=== PATIENT | male | born 1950 | race Caucasian/White ===

== ENCOUNTER 2019-05-27 08:15 | Outpatient (RCR) | payer OTHER, SELFPAY ==
[2019-05-01 10:21] VITALS: RESP 16; TEMP 37.1; BMI 45.9
--- NOTE | 2019-05-01 12:23 | HP.PCM_ITS ---
(1) Cellulitis of left leg without foot Status: Acute Current Visit: Yes Code(s): L03.116 - Cellulitis of left lower limb (2) Lower extremity edema Status: Acute Current Visit: Yes Code(s): R60.0 - Localized edema (3) Diabetes type 2, uncontrolled Status: Acute Current Visit: Yes Code(s): E11.65 - Type 2 diabetes mellitus with hyperglycemia (4) CVA (cerebrovascular accident due to intracerebral hemorrhage) Status: Acute Current Visit: Yes Qualifiers: Intracerebral hemorrhage etiology: traumatic Laterality: unspecified laterality Code(s): I61.9 - Nontraumatic intracerebral hemorrhage, unspecified (5) Peripheral vascular disease due to secondary diabetes mellitus Status: Acute Current Visit: Yes Code(s): E13.51 - Other specified diabetes mellitus with diabetic peripheral angiopathy without gangrene History of Present Illness Date of Service: 05/01/19 Chief Complaint: Follow-up left lower leg cellulitis and blisters History of Wound: 78-year-old white male that developed cellulitis in his left lower leg and was admitted to the hospital for what seems to be Pseudomonas infection of the left lower leg has been on IV antibiotics for 3 to 5 days. Was recently sent home and is primary care doctor put him on another set of antibiotics unknown but she thinks it was Levaquin. Patient was sent to us from primary care in [place]. Past Medical History Past Medical History: right he did have that done hypertension strokes diabetes atrial fib long-term blood thinners use Home Medications: Ambulatory Orders Medication Instructions Recorded Albuterol IH (ProAir) [Proair Hfa 2 puff INHALATION Q4H PRN PRN 05/01/19 (SP)Vent Pts] Apixaban [Eliquis] 5 mg PO BID 05/01/19 Clonidine HCl [Catapres] 0.1 mg PO TID 05/01/19 Diltiazem CD [Cardizem CD] 180 mg PO DAILY 05/01/19 Ezetimibe [Zetia] 10 mg PO DAILY 05/01/19 Furosemide 80 mg PO DAILY 05/01/19 Losartan Potassium 100 mg PO DAILY 05/01/19 Lovastatin 20 mg PO DAILY 05/01/19 Metformin HCl [Metformin HCl ER] 500 mg PO BID 05/01/19 Metoprolol Succinate 100 mg PO DAILY 05/01/19 Multivitamin with Minerals 1 ea PO DAILY 05/01/19 [Multiple Vitamin] Omeprazole 40 mg PO BID 05/01/19 Potassium Chloride [K-Dur] 40 meq PO BID 05/01/19 Pramipexole Di-HCl [Pramipexole 0.125 mg PO DAILY 05/01/19 Dihydrochloride] Lives: Spouse/ Significant Other Smoking Status: Former smoker Review of Systems Constitutional: Denies: Chills, Fever Eyes: Denies: Blurred vision, Drainage, Pain HEENT: Denies: Difficulty Hearing, Difficulty Swallowing, Sore Throat, Visual C hanges Cardiovascular: Denies: Chest Pain, Palpitations, Syncope Respiratory: Denies: Cough, Shortness of Breath Gastrointestinal: Denies: Abdominal Pain, Nausea, Vomiting Genitourinary: Denies: Dysuria, Frequency Musculoskeletal: Denies: Joint Pain, Muscle pain Skin: Reports: Rash, - - Blistering redness swelling lower legs. 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 Oral: Moist Mucosa Neck: Supple, No JVD Lungs: Clear to auscultation, Normal air movement Cardiovascular: Regular rate, Regular Rhythm Abdomen: Bowel Sounds Present, Soft, Non Tender, No Hepato-splenomegaly Extremities: No clubbing, No edema, Edema Skin: Rash Present, - - Warm to touch left leg Wound Measurements and Assessment WC - Nurse 1 - General Ulcer Measurement Start: 05/01/19 10:20 Freq: Status: Active Protocol: Activity Type Activity Date Activity User E-Sign Co-Sign Detail Recorded Client Recorded Date Recorded By Document 05/01/19 10:21 [facility] [id number] 05/01/19 10:44 [facility] 05/01/19 10:21 Wound Center Nurse 1 [Ulcer Assessment] 1. LLE medial -Combined with other wound No -Current Size (cm) - Length 5.4 -Current Size (cm) - Width 5.7 -Current Size (cm) - Depth 0.1 -Total Square Cm 30.78 -Photo Taken Yes -Tunneling No -Undermining/Tunneling No -Circular Undermining No -Exudate Amt Small -Exudate Type Serosanguineous -Wound Margin Flat & Intact -Granulation Amt Medium (34-66%) -Granulation Quality [place] -Slough/Fibrin Yes -Necrosis Amt Medium (34-66%) -Necrotic Tissue Type Adherent Slough -Structure Exposed N/A -Texture (Rosalinda-wound Skin Appearance) Assessed -Moisture (Rosalinda-wound Skin Appearance Weeping ) -Color (Rosalinda-wound Skin Appearance) Hemosiderin Staining -Ulcer Cleansing Wound Cleanser -Foul Odor after Cleansing No -Anesthetic Used 5% Lidocaine Gel [Edema Assessment] -Lower Limb Edema Present Yes -Right Calf (cm) 47.5 -Right Ankle (cm) 28.7 -Left Calf (cm) 52 -Left Ankle (cm) 30.9 WC - Nurse 2 - General Ulcer CM Notes Start: 05/01/19 10:20 Freq: Status: Active Protocol: Activity Type Activity Date Activity User E-Sign Co-Sign Detail Recorded Client Recorded Date Recorded By Document 05/01/19 11:11 MW [id number] 05/01/19 11:19 MW 05/01/19 11:11 Wound Center Nurse 2 [Procedure/Treatment] 1. LLE medial -Time 11:12 -Correct Patient Yes -Correct Side, Site, Position Yes -Correct Procedure Yes -Procedure Performed Yes -Type of Procedure Debridement -Clinical Debridement Subcutaneous -Post Debridement Size (cm) - Length 7.0 -Post Debridement Size (cm) - Width 6.5 -Post Debridement Size (cm) - Depth 0.1 -Total Square Cm 45.50 -Wound/Ulcer Outcome Not Healed -Ulcer Cleansing Rinsed/ Irrigated with Saline -Foul Odor after Cleansing No -Bioengineered Tissue No -Bleeding Controlled with Pressure -Offloading No -Treatment Response Procedure Tolerated Well [See Physician Procedure note for Specifics] Pain Scale: 0-10 Numeric [Pain] -Is Patient Pain Free? Yes Musculoskeletal: No Tenderness to Palpation of Joints or Extremities Lymphatic: No Cervical, Supraclavicular, or Inguinal Adenopathy Neurological: Cranial nerves II-XII grossly intact, Neuro grossly intact Psych/Mental Status: Normal Affect, Appropriate, Alert and oriented to time, place, person, mood and affect Debridement Note Post-Debridement Measurements/Treatment WC - Nurse 2 - General Ulcer CM Notes Start: 05/01/19 10:20 Freq: Status: Active Protocol: Activity Type Activity Date Activity User E-Sign Co-Sign Detail Recorded Client Recorded Date Recorded By Document 05/01/19 11:11 MW [id number] 05/01/19 11:19 MW 05/01/19 11:11 Wound Center Nurse 2 1. LLE medial -Time 11:12 -Correct Patient Yes -Correct Side, Site, Position Yes -Correct Procedure Yes -Procedure Performed Yes -Type of Procedure Debridement -Clinical Debridement Subcutaneous -Post Debridement Size (cm) - Length 7.0 -Post Debridement Size (cm) - Width 6.5 -Post Debridement Size (cm) - Depth 0.1 -Total Square Cm 45.50 -Wound/Ulcer Outcome Not Healed -Ulcer Cleansing Rinsed/ Irrigated with Saline -Foul Odor after Cleansing No -Bioengineered Tissue No -Bleeding Controlled with Pressure -Offloading No -Treatment Response Procedure Tolerated Well Pain Scale: 0-10 Numeric Is Patient Pain Free? Yes Wound debrided: Left lower leg blister Type of Debridement: Excisional debridement Anesthesia Used: 5% Lidocaine Gel Depth: Down to and including healthy tissue Percentage of wound debrided: 100 Instrument Used: 7mm curette Tissue Removed: Devitalized tissue Severity: Limited To Skin Breakdown Bleeding Controlled with: Compression and gauze Patient tolerated procedure well Assessment/Plan Aerobic and anaerobic cultures obtained Active Problems Cellulitis of left leg without foot (Acute) Lower extremity edema (Acute) Diabetes type 2, uncontrolled (Acute) CVA (cerebrovascular accident due to intracerebral hemorrhage) (Acute) Peripheral vascular disease due to secondary diabetes mellitus (Acute) Assessment: Cellulitis left lower leg. Edema left lower leg. Blistering left lower leg. Diabetes type 2 uncontrolled atrial fib stroke long-term use of blood thinners Plan: Wash left leg with Hibiclens. Apply Xeroform dressings to medial and lateral blistering areas. Cultures obtained will call with results. Start met ronidazole 375 3 times daily x10 days. Cover with absorbent ABDs and Dunia. Double layer Tubigrip's. Follow-up in 1 week
[2019-05-05 12:19] VITALS: BP 148/74; PULSE 95; RESP 18; TEMP 36.6; BMI 45.9
--- NOTE | 2019-05-05 14:55 | PCM.WC.PN ---
(1) Cellulitis of left leg without foot Status: Acute Code(s): L03.116 - Cellulitis of left lower limb (2) Lower extremity edema Status: Chronic Code(s): R60.0 - Localized edema (3) Diabetes type 2, uncontrolled Status: Chronic Code(s): E11.65 - Type 2 diabetes mellitus with hyperglycemia (4) Peripheral vascular disease due to secondary diabetes mellitus Status: Chronic Code(s): E13.51 - Other specified diabetes mellitus with diabetic peripheral angiopathy without gangrene Type of Wound Date of Service: 05/05/19 Chief Complaint: Follow-up left lower leg cellulitis and blisters History of Wound: 78-year-old white male that developed cellulitis in his left lower leg and was admitted to the hospital for what seems to be Pseudomonas infection of the left lower leg has been on IV antibiotics for 3 to 5 days. Was recently sent home and is primary care doctor put him on another set of antibiotics unknown but she thinks it was Levaquin. Patient was sent to us from primary care in [place]. Progress of Wound: Courtesy visit today due to patient developing a blister that has formed on the left lateral ankle/proximal foot and his is extremely concerned. He is having extreme sensitivity to the excoriated areas on his medial and lateral lower leg. He has +3 edema of his lower legs. - Physical Exam Vital Signs Temp Pulse Resp BP 98 F 95 18 148/74 H 05/05/19 12:19 05/05/19 12:19 05/05/19 12:19 05/05/19 12:19 General: Alert, Cooperative HEENT: Atraumatic Oral: Moist Mucosa Lungs: Normal air movement Cardiovascular: Regular rate Extremities: Capillary Refill Less than 3 Seconds, Diminished Peripheral Pulses, Edema Skin: Ulcer/ Wound - No opened wounds, areas of excoriation. Left latearl ankle area blister had popped before he was seen, removed sloughed skin. Skin under blistered area intact. Wound Measurements and Assessment WC - Nurse 1 - General Ulcer Measurement Start: 05/01/19 10:20 Freq: Status: Active Protocol: Activity Type Activity Date Activity User E-Sign Co-Sign Detail Recorded Client Recorded Date Recorded By Document 05/05/19 12:19 [facility] [id number] 05/05/19 12:29 [facility] 05/05/19 12:19 Wound Center Nurse 1 [Ulcer Assessment] 1. LLE medial -Combined with other wound No -Current Size (cm) - Length 5.4 -Current Size (cm) - Width 6.5 -Current Size (cm) - Depth 0.1 -Total Square Cm 35.10 -Photo Taken No -Epithelialization Large 67-100% -Tunneling No -Undermining/Tunneling No -Circular Undermining No -Exudate Amt Medium -Exudate Type Serous -Wound Margin Flat & Intact -Granulation Amt Medium (34-66%) -Granulation Quality [place] -Slough/Fibrin No -Necrosis Amt None Present (0 %) -Texture (Rosalinda-wound Skin Appearance) Assessed, Scarring -Moisture (Rosalinda-wound Skin Appearance Maceration, ) Weeping -Color (Roaslinda-wound Skin Appearance) Assessed, Erythema -Temperature (Rosalinda-wound Skin No Abnormality Appearance) (Pt Warm) -Tenderness on Palpation (Rosalinda-wound Yes Skin Appearance) -Ulcer Cleansing soap and water -Foul Odor after Cleansing No -Anesthetic Used 4% Lidocaine Solution [Edema Assessment] -Lower Limb Edema Present Yes -Right Calf (cm) 48.1 -Right Ankle (cm) 28.5 -Left Calf (cm) 49.6 -Left Ankle (cm) 30.9 WC - Nurse 2 - General Ulcer CM Notes Start: 05/01/19 10:20 Freq: Status: Active Protocol: Activity Type Activity Date Activity User E-Sign Co-Sign Detail Recorded Client Recorded Date Recorded By Document 05/05/19 12:51 JOH[facility] [id number] 05/05/19 13:03 JOHNY 05/05/19 12:51 Wound Center Nurse 2 [Procedure/Treatment] 1. LLE medial -Correct Patient No -Correct Side, Site, Position No -Correct Procedure No -Procedure Performed No -Wound/Ulcer Outcome Not Healed -Bleeding Controlled with Pressure -Offloading No -Treatment Response Procedure Tolerated Well [See Physician Procedure note for Specifics] Pain Scale: 0-10 Numeric [Pain] -Is Patient Pain Free? Yes Musculoskeletal: No Muscle Wasting Neurological: Neuro grossly intact Psych/Mental Status: Normal Affect, Appropriate Debridement Note Post-Debridement Measurements/Treatment WC - Nurse 2 - General Ulcer CM Notes Start: 05/01/19 10:20 Freq: Status: Active Protocol: Activity Type Activity Date Activity User E-Sign Co-Sign Detail Recorded Client Recorded Date Recorded By Document 05/01/19 11:11 MW [id number] 05/01/19 11:19 MW Document 05/05/19 12:51 JF [id number] 05/05/19 13:03 05/01/19 05/05/19 11:11 12:51 Wound Center Nurse 2 1. LLE medial -Time 11:12 -Correct Patient Yes No -Correct Side, Site, Position Yes No -Correct Procedure Yes No -Procedure Performed Yes No -Type of Procedure Debridement -Clinical Debridement Subcutaneous -Post Debridement Size (cm) - Length 7.0 -Post Debridement Size (cm) - Width 6.5 -Post Debridement Size (cm) - Depth 0.1 -Total Square Cm 45.50 -Wound/Ulcer Outcome Not Healed Not Healed -Ulcer Cleansing Rinsed/ Irrigated with Saline -Foul Odor after Cleansing No -Bioengineered Tissue No -Bleeding Controlled with Pressure Pressure -Offloading No No -Treatment Response Procedure Procedure Tolerated Well Tolerated Well Pain Scale: 0-10 Numeric Is Patient Pain Free? Yes Yes No debridement was completed today Assessment/Plan Assessment: Cellulitis left lower leg. Edema left lower leg. Blistering left lower leg. Diabetes type 2 uncontrolled atrial fib stroke long-term use of blood thinners Plan: Wash left leg with soap and water. No blistered areas remain but areas are very tender to palpation. There is drainage present. Will stop the xeroform gauze due to it may be preventing the drainage. Will start collagen hydrogel covered by gauze. Cultures from 05/01/19 currently negative, anaerobic cultures not finalized. Continue metronidazole 375 3 times daily x10 days. Cover with absorbent gauze/ABD, covered by stockingette and use surepress for compression. Order Arterial studies before beginning more aggressive compression. Follow-up in 1 week with Medina. Code Visit Office Visits / Consults: [id number] OV L3 Est
--- NOTE | 2019-05-13 07:24 | ART_ITS ---
Reason For Study: LLE ULCER Left Segmental Pressures Left brachial= 136mmHg. Left posterior tibial artery = 188mmHg. Left dorsalis pedis artery = 176mmHg. Left digit = 136 mmHg. The left posterior tibial artery waveforms are triphasic. The left dorsalis pedis waveforms are triphasic. Right Segmental Pressures Right brachial= 134mmHg. Right posterior tibial artery = 172mmHg. Right dorsalis pedis artery = 157mmHg. Right digit = 154 mmHg. The right posterior tibial artery waveforms are triphasic. The right dorsalis pedis waveforms are triphasic. Indices The right resting ankle brachial index is 1.26. The right ankle brachial index by the posterior tibial artery is 1.26. The right ankle brachial index by the dorsalis pedis is 1.15. The right digital-brachial index is 1.13. The left resting ankle brachial index is 1.38. The left ankle brachial index by the posterior tibial artery is 1.38. The left ankle brachial index by the dorsalis pedis is 1.29. The left digital-brachial index is 1.29. Interpretation Summary Triphasic Doppler waveforms are noted at ankle level bilaterally. Pulse-volume recordings appear satisfactory at all levels bilaterally. Resting ankle-brachial indices are normal bilaterally. Digital-brachial indices are normal bilaterally. There is no evidence of significant arterial occlusive disease in the lower extremities bilaterally. Ordering Physician: Medina Odell Referring Physician: Medina Odell Performed By: Maki Kong RVT, RDCS
[2019-05-13 09:24] VITALS: BP 155/86; PULSE 79; RESP 18; TEMP 36.4; BMI 45.9
--- NOTE | 2019-05-13 10:19 | PCM.WC.PN ---
(1) Cellulitis of left leg without foot Status: Acute Current Visit: No Code(s): L03.116 - Cellulitis of left lower limb (2) Lower extremity edema Status: Chronic Current Visit: No Code(s): R60.0 - Localized edema (3) Diabetes type 2, uncontrolled Status: Chronic Current Visit: No Code(s): E11.65 - Type 2 diabetes mellitus with hyperglycemia (4) CVA (cerebrovascular accident due to intracerebral hemorrhage) Status: Acute Current Visit: No Qualifiers: Intracerebral hemorrhage etiology: traumatic Laterality: unspecified laterality Code(s): I61.9 - Nontraumatic intracerebral hemorrhage, unspecified (5) Peripheral vascular disease due to secondary diabetes mellitus Status: Chronic Current Visit: No Code(s): E13.51 - Other specified diabetes mellitus with diabetic peripheral angiopathy without gangrene Type of Wound Date of Service: 05/13/19 Chief Complaint: Follow-up left lower leg cellulitis and blisters History of Wound: 78-year-old white male that developed cellulitis in his left lower leg and was admitted to the hospital for what seems to be Pseudomonas infection of the left lower leg has been on IV antibiotics for 3 to 5 days. Was recently sent home and is primary care doctor put him on another set of antibiotics unknown but she thinks it was Levaquin. Patient was sent to us from primary care in [place]. Progress of Wound: Today the edema is still about a 2+ to the left lower leg both left lateral blisters that were new this last week are crusted over the right medial blisters have healed. I discussed with that has nothing to do with the Xeroform dressings it is all about compression and she states she cannot use the SurePress and it is obvious because his legs are still swollen. So we are going to do a double layer Tubigrip for now with a 6 inch Je wrap over top for easier for her to handle. Order CircAid's for the left leg and they can decide if they want to buy the right leg. Arterial studies came back and it looks like he has a higher number about mid calf so the circulation to mid calf is a little bit decreased but he does have good circulation all the way to the toes. His states that he is walking better and getting around better. We did discuss weight control and he brought it up first about losing weight and I told him that that would be the best thing for him as to control the gut weight would get rid of some of the pressure on most of his her arteries and veins. We will follow him up in 2 weeks and we will continue the change from Xeroform to hydrogel with Adaptic over top to keep the legs more moist then cover with gauze and his double layer Tubigrip with Je wrap over top. - Physical Exam Vital Signs Temp Pulse Resp BP 97.5 F L 79 18 155/86 H 05/13/19 09:24 05/13/19 09:24 05/13/19 09:24 05/13/19 09:24 General: Oriented x3, Cooperative, Well developed HEENT: Atraumatic, PERRLA Oral: Moist Mucosa Neck: Supple, No JVD Lungs: Clear to auscultation, Normal air movement Cardiovascular: Regular rate, Regular Rhythm Abdomen: Bowel Sounds Present, Soft, Non Tender, No Hepato-splenomegaly Extremities: No clubbing, No edema Skin: Ulcer/ Wound - Left lateral lower leg blister that open to ulcer Wound Measurements and Assessment WC - Nurse 1 - General Ulcer Measurement Start: 05/01/19 10:20 Freq: Status: Active Protocol: Activity Type Activity Date Activity User E-Sign Co-Sign Detail Recorded Client Recorded Date Recorded By Document 05/13/19 09:24 [id number] 05/13/19 09:37 RB 05/13/19 09:24 Wound Center Nurse 1 [Ulcer Assessment] 1. LLE medial -Combined with other wound No -Current Size (cm) - Length 0.1 -Current Size (cm) - Width 0.1 -Current Size (cm) - Depth 0.1 -Total Square Cm 0.01 -Tunneling No -Undermining/Tunneling No -Circular Undermining No -Exudate Amt None Present -Wound Margin Flat & Intact -Granulation Amt Small (1-33%) -Granulation Quality [place] -Slough/Fibrin Yes -Necrosis Amt Large (67-100%) -Necrotic Tissue Type Adherent Slough -Structure Exposed N/A -Texture (Rosalinda-wound Skin Appearance) Assessed -Moisture (Rosalinda-wound Skin Appearance Assessed ) -Color (Rosalinda-wound Skin Appearance) Assessed -Temperature (Rosalinda-wound Skin No Abnormality Appearance) (Pt Warm) -Tenderness on Palpation (Rosalinda-wound No Skin Appearance) -Ulcer Cleansing Wound Cleanser -Foul Odor after Cleansing No -Anesthetic Used 5% Lidocaine Gel [Edema Assessment] -Lower Limb Edema Present Yes -Left Calf (cm) 50.5 -Left Ankle (cm) 29.6 WC - Nurse 2 - General Ulcer CM Notes Start: 05/01/19 10:20 Freq: Status: Active Protocol: Activity Type Activity Date Activity User E-Sign Co-Sign Detail Recorded Client Recorded Date Recorded By Document 05/13/19 09:42 MW [id number] 05/13/19 09:59 MW 05/13/19 09:42 Wound Center Nurse 2 [Procedure/Treatment] #2 Left Lateral LE -Time 09:53 -Correct Patient Yes -Correct Side, Site, Position Yes -Correct Procedure Yes -Procedure Performed Yes -Type of Procedure Debridement -Clinical Debridement Subcutaneous -Post Debridement Size (cm) - Length 4.0 -Post Debridement Size (cm) - Width 3.0 -Post Debridement Size (cm) - Depth 0.1 -Total Square Cm 12.00 -Wound/Ulcer Outcome Not Healed -Ulcer Cleansing Rinsed/ Irrigated with Saline -Foul Odor after Cleansing No -Bioengineered Tissue No -Bleeding Controlled with Pressure -Offloading No -Treatment Response Procedure Tolerated Well 1. LLE medial -Time 09:42 -Correct Patient Yes -Correct Side, Site, Position Yes -Correct Procedure Yes -Procedure Performed No -Post Debridement Size (cm) - Length 0 -Post Debridement Size (cm) - Width 0 -Post Debridement Size (cm) - Depth 0 -Total Square Cm 0 -Wound/Ulcer Outcome Healed- Epithelialized -Ulcer Cleansing Rinsed/ Irrigated with Saline -Offloading No -Treatment Response Procedure Tolerated Well [See Physician Procedure note for Specifics] Pain Scale: 0-10 Numeric [Pain] -Is Patient Pain Free? Yes Musculoskeletal: No Tenderness to Palpation of Joints or Extremities Lymphatic: No Cervical, Supraclavicular, or Inguinal Adenopathy Neurological: Cranial nerves II-XII grossly intact, Neuro grossly intact Psych/Mental Status: Normal Affect, Appropriate Debridement Note Post-Debridement Measurements/Treatment JONY - Nurse 2 - General Ulcer CM Notes Start: 05/01/19 10:20 Freq: Status: Active Protocol: Activity Type Activity Date Activity User E-Sign Co-Sign Detail Recorded Client Recorded Date Recorded By Document 05/01/19 11:11 MW [id number] 05/01/19 11:19 MW Document 05/05/19 12:51 JF [id number] 05/05/19 13:03 JF Document 05/13/19 09:42 MW [id number] 05/13/19 09:59 MW 05/01/19 05/05/19 05/13/19 11:11 12:51 09:42 Wound Center Nurse 2 #2 Left Lateral LE -Time 09:53 -Correct Patient Yes -Correct Side, Site, Position Yes -Correct Procedure Yes -Procedure Performed Yes -Type of Procedure Debridement -Clinical Debridement Subcutaneous -Post Debridement Size (cm) - Length 4.0 -Post Debridement Size (cm) - Width 3.0 -Post Debridement Size (cm) - Depth 0.1 -Total Square Cm 12.00 -Wound/Ulcer Outcome Not Healed -Ulcer Cleansing Rinsed/ Irrigated with Saline -Foul Odor after Cleansing No -Bioengineered Tissue No -Bleeding Controlled with Pressure -Offloading No -Treatment Response Procedure Tolerated Well 1. LLE medial -Time 11:12 09:42 -Correct Patient Yes No Yes -Correct Side, Site, Position Yes No Yes -Correct Procedure Yes No Yes -Procedure Performed Yes No No -Type of Procedure Debridement -Clinical Debridement Subcutaneous -Post Debridement Size (cm) - Length 7.0 0 -Post Debridement Size (cm) - Width 6.5 0 -Post Debridement Size (cm) - Depth 0.1 0 -Total Square Cm 45.50 0 -Wound/Ulcer Outcome Not Healed Not Healed Healed- Epithelialized -Ulcer Cleansing Rinsed/ Rinsed/ Irrigated with Irrigated with Saline Saline -Foul Odor after Cleansing No -Bioengineered Tissue No -Bleeding Controlled with Pressure Pressure -Offloading No No No -Treatment Response Procedure Procedure Procedure Tolerated Well Tolerated Well Tolerated Well Pain Scale: 0-10 Numeric Is Patient Pain Free? Yes Yes Yes Wound debrided: Left lateral lower leg Type of Debridement: Excisional debridement Anesthesia Used: 5% Lidocaine Gel Depth: Down to and including healthy tissue Percentage of wound debrided: 100 Instrument Used: 7mm curette Tissue Removed: Devitalized tissue Severity: Limited To Skin Breakdown Amount of bleeding with debridement: None Bleeding Controlled with: Pressure Patient tolerated procedure well Assessment/Plan Assessment: Cellulitis left lower leg. Edema left lower leg. Blistering left lower leg. Diabetes type 2 uncontrolled atrial fib stroke long-term use of blood thinners Plan: Wash left leg with soap and water. No blistered areas remain but areas are very tender to palpation. There is drainage present. Will start collagen hydrogel covered by Adaptic then gauze. Cultures from 05/01/19 currently negative, anaerobic cultures not finalized. Continue metronidazole 375 3 times daily x10 days. Double layer Tubigrip's with 6 inch Je wrap over top. Will order CircAid's for left leg. Follow-up in 2 week
--- NOTE | 2019-05-25 08:45 | VDLE_ITS ---
Reason For Study: Bialteral lower extremity edema RIGHT LEFT CFV is compressible, spontaneous, phasic, CFV is compressible, spontaneous, phasic, competent and demonstrates normal competent, and demonstrates normal augmentation. augmentation. FV is compressible, spontaneous, phasic, FV is compressible, spontaneous, phasic, competent and demonstrates normal competent and demonstrates normal augmentation. augmentation. POP V is compressible, spontaneous, phasic, POP V is compressible, spontaneous, phasic, competent and demonstrates normal competent and demonstrates normal augmentation. augmentation. T/P Trunk is compressible. T/P Trunk is compressible. PTV is compressible. PTV is compressible. RT PerV is compressible. LT PerV is compressible. SFJ is competent and measures 1.01 x 1.10 cm. SFJ is competent and measures 1.12 x 1.02 cm. GSV proximal thigh measures 0.65 x 0.66 cm. GSV proximal thigh measures 0.82 x 0.79 cm. GSV at knee measures 0.45 x 0.48 cm. GSV above knee is competent. GSV INCOMPETENT throughout for greater than GSV at knee measures 0.51 x 0.53 cm. 0.5 seconds. GSV below knee is INCOMPETENT for greater SSV at junction is competent and measures than 0.5 seconds. 0.23 x 0.23 cm. ASV proximal calf is INCOMPETENT for greater Procedure than 0.5 seconds and measures 0.41 x 0.42 cm. Exam performed in department. SSV at junction is competent and measures A preliminary report was called and/or faxed 0.55 x 0.61 cm. to WC. Interpretation Summary Deep veins of the lower extremities are bilaterally patent and compressible segmentally. There is no evidence of deep vein thrombosis on either side. Valvular competence appears intact within the proximal deep venous systems bilaterally. The great saphenous veins appear bilaterally patent and compressible segmentally. Sapheno-femoral junctions are bilaterally competent . The right great saphenous vein appears segmentally incompetent. The left great saphenous vein appears competent above the knee. The left great saphenous vein appears incompetent below the knee. Small saphenous veins are patent and competent bilaterally. The left accessory saphenous vein in the proximal left calf is incompetent. Ordering Physician: Medina Odell Referring Physician: Emely Franco Performed By: Janet Samuel RVT
[2019-05-27 08:21] VITALS: BP 153/71; PULSE 78; RESP 18; TEMP 36.2; BMI 45.9
--- NOTE | 2019-05-27 10:33 | PN.PCM_ITS ---
(1) Cellulitis of left leg without foot Status: Acute Current Visit: Yes Code(s): L03.116 - Cellulitis of left lower limb (2) Lower extremity edema Status: Chronic Current Visit: Yes Code(s): R60.0 - Localized edema (3) Diabetes type 2, uncontrolled Status: Chronic Current Visit: Yes Code(s): E11.65 - Type 2 diabetes mellitus with hyperglycemia (4) CVA (cerebrovascular accident due to intracerebral hemorrhage) Status: Acute Current Visit: No Qualifiers: Intracerebral hemorrhage etiology: traumatic Laterality: unspecified laterality Code(s): I61.9 - Nontraumatic intracerebral hemorrhage, unspecified (5) Peripheral vascular disease due to secondary diabetes mellitus Status: Chronic Current Visit: Yes Code(s): E13.51 - Other specified diabetes mellitus with diabetic peripheral angiopathy without gangrene Type of Wound Date of Service: 05/27/19 Chief Complaint: Follow-up left lower leg cellulitis and blisters History of Wound: 78-year-old white male that developed cellulitis in his left lower leg and was admitted to the hospital for what seems to be Pseudomonas infection of the left lower leg has been on IV antibiotics for 3 to 5 days. Was recently sent home and is primary care doctor put him on another set of antibiotics unknown but she thinks it was Levaquin. Patient was sent to us from primary care in [place]. Progress of Wound: Today the wounds are healed there is no cellulitis legs are skinny . Patient will be referred to Dr. Hillman his AB studies and ultrasound show some blockages in that left lower leg patient was introduced to amLactin cream for the dry skin areas he is allowed to use hydrogel or Adaptic on any areas that might appear to start opening until he can be seen by Dr. Hillman but patient will be discharged from the wound center thank you - Physical Exam Vital Signs Temp Pulse Resp BP 97.1 F L 78 18 153/71 H 05/27/19 08:21 05/27/19 08:21 05/27/19 08:21 05/27/19 08:21 General: Oriented x3, Cooperative, Well developed HEENT: Atraumatic, PERRLA Oral: Moist Mucosa Neck: Supple, No JVD Lungs: Clear to auscultation, Normal air movement Cardiovascular: Regular rate, Regular Rhythm Abdomen: Bowel Sounds Present, Soft, Non Tender, No Hepato-splenomegaly Extremities: No clubbing, No edema Skin: No rashes, No breakdown Wound Measurements and Assessment WC - Nurse 1 - General Ulcer Measurement Start: 05/01/19 10:20 Freq: Status: Active Protocol: Activity Type Activity Date Activity User E-Sign Co-Sign Detail Recorded Client Recorded Date Recorded By Document 05/27/19 08:21 RB [id number] 05/27/19 08:31 RB 05/27/19 08:21 Wound Center Nurse 1 [Ulcer Assessment] #2 Left Lateral LE -Combined with other wound No -Current Size (cm) - Length 0.5 -Current Size (cm) - Width 1 -Current Size (cm) - Depth 0.1 -Total Square Cm 0.5 -Tunneling No -Undermining/Tunneling No -Circular Undermining No -Exudate Amt Small -Exudate Type Serosanguineous -Wound Margin Flat & Intact -Granulation Amt Medium (34-66%) -Granulation Quality [place] -Slough/Fibrin Yes -Necrosis Amt Small (1-33%) -Necrotic Tissue Type Adherent Slough -Structure Exposed N/A -Texture (Rosalinda-wound Skin Appearance) Assessed -Moisture (Rosalinda-wound Skin Appearance Assessed ) -Color (Rosalinda-wound Skin Appearance) Assessed -Temperature (Rosalinda-wound Skin No Abnormality Appearance) (Pt Warm) -Tenderness on Palpation (Rosalinda-wound No Skin Appearance) -Ulcer Cleansing Wound Cleanser -Foul Odor after Cleansing No -Anesthetic Used 5% Lidocaine Gel [Edema Assessment] -Lower Limb Edema Present Yes -Right Calf (cm) 50.3 -Right Ankle (cm) 28.7 -Left Calf (cm) 49.4 -Left Ankle (cm) 29.5 WC - Nurse 2 - General Ulcer CM Notes Start: 05/01/19 10:20 Freq: Status: Active Protocol: Activity Type Activity Date Activity User E-Sign Co-Sign Detail Recorded Client Recorded Date Recorded By Document 05/27/19 08:58 MW [id number] 05/27/19 09:01 MW 05/27/19 08:58 Wound Center Nurse 2 [Procedure/Treatment] #2 Left Lateral LE -Time 08:58 -Correct Patient Yes -Correct Side, Site, Position Yes -Correct Procedure Yes -Procedure Performed No -Post Debridement Size (cm) - Length 0 -Post Debridement Size (cm) - Width 0 -Post Debridement Size (cm) - Depth 0 -Total Square Cm 0 -Wound/Ulcer Outcome Healed- Epithelialized -Bleeding Controlled with NA -Offloading No -Treatment Response Procedure Tolerated Well [See Physician Procedure note for Specifics] Pain Scale: 0-10 Numeric [Pain] -Is Patient Pain Free? Yes Musculoskeletal: No Tenderness to Palpation of Joints or Extremities Lymphatic: No Cervical, Supraclavicular, or Inguinal Adenopathy Neurological: Cranial nerves II-XII grossly intact, Neuro grossly intact Psych/Mental Status: Normal Affect, Appropriate, Alert and oriented to time, place, person, mood and affect Debridement Note Post-Debridement Measurements/Treatment WC - Nurse 2 - General Ulcer CM Notes Start: 05/01/19 10:20 Freq: Status: Active Protocol: Activity Type Activity Date Activity User E-Sign Co-Sign Detail Recorded Client Recorded Date Recorded By Document 05/01/19 11:11 MW [id number] 05/01/19 11:19 MW Document 05/05/19 12:51 JF [id number] 05/05/19 13:03 JF Document 05/13/19 09:42 MW [id number] 05/13/19 09:59 MW Document 05/27/19 08:58 MW [id number] 05/27/19 09:01 MW 05/01/19 05/05/19 05/13/19 11:11 12:51 09:42 Wound Center Nurse 2 #2 Left Lateral LE -Time 09:53 -Correct Patient Yes -Correct Side, Site, Position Yes -Correct Procedure Yes -Procedure Performed Yes -Type of Procedure Debridement -Clinical Debridement Subcutaneous -Post Debridement Size (cm) - Length 4.0 -Post Debridement Size (cm) - Width 3.0 -Post Debridement Size (cm) - Depth 0.1 -Total Square Cm 12.00 -Wound/Ulcer Outcome Not Healed -Ulcer Cleansing Rinsed/ Irrigated with Saline -Foul Odor after Cleansing No -Bioengineered Tissue No -Bleeding Controlled with Pressure -Offloading No -Treatment Response Procedure Tolerated Well 1. LLE medial -Time 11:12 09:42 -Correct Patient Yes No Yes -Correct Side, Site, Position Yes No Yes -Correct Procedure Yes No Yes -Procedure Performed Yes No No -Type of Procedure Debridement -Clinical Debridement Subcutaneous -Post Debridement Size (cm) - Length 7.0 0 -Post Debridement Size (cm) - Width 6.5 0 -Post Debridement Size (cm) - Depth 0.1 0 -Total Square Cm 45.50 0 -Wound/Ulcer Outcome Not Healed Not Healed Healed- Epithelialized -Ulcer Cleansing Rinsed/ Rinsed/ Irrigated with Irrigated with Saline Saline -Foul Odor after Cleansing No -Bioengineered Tissue No -Bleeding Controlled with Pressure Pressure -Offloading No No No -Treatment Response Procedure Procedure Procedure Tolerated Well Tolerated Well Tolerated Well Pain Scale: 0-10 Numeric Is Patient Pain Free? Yes Yes Yes 05/27/19 08:58 Wound Center Nurse 2 #2 Left Lateral LE -Time 08:58 -Correct Patient Yes -Correct Side, Site, Position Yes -Correct Procedure Yes -Procedure Performed No -Type of Procedure -Clinical Debridement -Post Debridement Size (cm) - Length 0 -Post Debridement Size (cm) - Width 0 -Post Debridement Size (cm) - Depth 0 -Total Square Cm 0 -Wound/Ulcer Outcome Healed- Epithelialized -Ulcer Cleansing -Foul Odor after Cleansing -Bioengineered Tissue -Bleeding Controlled with NA -Offloading No -Treatment Response Procedure Tolerated Well 1. LLE medial -Time -Correct Patient -Correct Side, Site, Position -Correct Procedure -Procedure Performed -Type of Procedure -Clinical Debridement -Post Debridement Size (cm) - Length -Post Debridement Size (cm) - Width -Post Debridement Size (cm) - Depth -Total Square Cm -Wound/Ulcer Outcome -Ulcer Cleansing -Foul Odor after Cleansing -Bioengineered Tissue -Bleeding Controlled with -Offloading -Treatment Response Pain Scale: 0-10 Numeric Is Patient Pain Free? Yes No debridement was completed today Assessment/Plan Active Problems Cellulitis of left leg without foot (Acute) Lower extremity edema (Chronic) Diabetes type 2, uncontrolled (Chronic) Peripheral vascular disease due to secondary diabetes mellitus (Chronic) Assessment: Cellulitis left lower leg resolved. Edema left lower leg controlled. Blistering left lower leg resolved. Diabetes type 2 uncontrolled atrial fib stroke long-term use of blood thinners Plan: Referred to Dr. Hillman for further evaluation. May use hydrogel and Adaptic to any areas that might open as needed. Double layer Tubigrip to the left lower leg and right leg. Patient was instructed on wearing his CircAid's is going to buy another one for the other leg. Follow-up as needed discharge from the wound center
== END 2019-05-30 23:59 ==
LOC: WC 08:15
PROVIDERS: Family Provider Internal Medicine; PCP Internal Medicine; Referring Provider Nurse Practitioner; Visit Provider Nurse Practitioner
DX: E11.51 Type 2 diabetes mellitus with diabetic peripheral angiopathy without gangrene (principal); E11.65 Type 2 diabetes mellitus with hyperglycemia; L03.116 Cellulitis of left lower limb; S80.822A Blister (nonthermal), left lower leg, initial encounter; X58.XXXA Exposure to other specified factors, initial encounter; R60.0 Localized edema; I48.91 Unspecified atrial fibrillation; I10 Essential (primary) hypertension; Z86.73 Personal history of transient ischemic attack (TIA), and cerebral infarction without residual deficits; Z79.899 Other long term (current) drug therapy; Z87.891 Personal history of nicotine dependence; Z79.01 Long term (current) use of anticoagulants
CPT/HCPCS: 11042; 11045; 87070; 87075; 87205; 93923; 93970; 99203; 99213; G0463

== ENCOUNTER → 2019-07-14 12:18 | Outpatient (CLI) | payer OTHER, SELFPAY ==
--- NOTE | 2019-07-14 12:23 | VDLE_ITS ---
Reason For Study: varicose veins RIGHT LEFT CFV is compressible, spontaneous, phasic, CFV is compressible, spontaneous, phasic, competent and demonstrates normal competent, and demonstrates normal augmentation. augmentation. FV is compressible, spontaneous, phasic, FV is compressible, spontaneous, phasic, competent and demonstrates normal competent and demonstrates normal augmentation. augmentation. POP V is compressible, spontaneous, phasic, POP V is compressible, spontaneous, phasic, competent and demonstrates normal competent and demonstrates normal augmentation. augmentation. T/P Trunk is compressible. T/P Trunk is compressible. PTV is compressible. PTV is compressible. RT PerV is compressible. LT PerV is compressible. GSV above the knee is occluded. SFJ is competent and measures .75 x .79 cm. SFJ is competent and measures .87 x .86 cm. GSV at knee measures .41 x .39 cm. GSV at knee measures .49 x .47 cm. GSV below knee is INCOMPETENT for greater GSV below knee is INCOMPETENT for greater than 0.5 seconds. than 0.5 seconds. SSV proximal calf is competent and SSV proximal calf is competent and measures .41 x .41 cm. measures .39 x .42 cm. GSV above the knee is occluded. Procedure ASV proximal calf is INCOMPETENT for greater Exam performed in department. than 0.5 seconds and measures .34 x .37 cm. The exam was diagnostic. Interpretation Summary 1. No DVT bilaterally 2. Bilateral GSV above knee occluded 3. Bilateral calf GSV reflux. Ordering Physician: Ender Hillman Performed By: Clement Nichols RVT
== END ==
PROVIDERS: Family Provider Internal Medicine; PCP Internal Medicine; Referring Provider Surgery Vascular Surgery; Visit Provider Surgery Vascular Surgery
DX: I83.893 Varicose veins of bilateral lower extremities with other complications (principal)
CPT/HCPCS: 93970

== ENCOUNTER → 2019-09-09 09:43 | Outpatient (CLI) | payer OTHER, SELFPAY ==
--- NOTE | 2019-09-09 09:46 | VDLE_ITS ---
Reason For Study: Varicose veins RIGHT LEFT CFV is compressible, spontaneous, phasic, CFV is compressible, spontaneous, phasic, competent and demonstrates normal competent, and demonstrates normal augmentation. augmentation. FV is compressible, spontaneous, phasic, FV is compressible, spontaneous, phasic, competent and demonstrates normal competent and demonstrates normal augmentation. augmentation. POP V is compressible, spontaneous, phasic, POP V is compressible, spontaneous, phasic, competent and demonstrates normal competent and demonstrates normal augmentation. augmentation. T/P Trunk is compressible. T/P Trunk is compressible. PTV is compressible. PTV is compressible. RT PerV is compressible. LT PerV is compressible. SFJ is competent and measures 0.96 x 0.83 cm. SFJ is partially occluded. GSV above the knee is occluded. GSV is occluded from junction to mid thigh. GSV at knee measures 0.35 x 0.35 cm. GSV in the distal thigh not visualized. GSV below knee is INCOMPETENT for greater GSV at knee measures 0.39 x 0.41 cm. than 0.5 seconds. GSV below knee is INCOMPETENT for greater ASV proximal calf is INCOMPETENT for greater than 0.5 seconds. than 0.5 seconds and measures 0.19 x 0.19 cm. ASV proximal calf is INCOMPETENT for greater SSV proximal calf is competent and measures than 0.5 seconds and measures 0.42 x 0.49 cm. 0.23 x 0.22 cm. SSV proximal calf is competent and measures Procedure 0.45 x 0.41 cm. Exam performed in department. Interpretation Summary Bilateral no DVT. Bilateral above knee GSV occluded. Bilateral calf ASV and GSV reflux. Ordering Physician: Ender Hillman Referring Physician: Emely Franco Performed By: Janet Samuel RVT
== END ==
PROVIDERS: PCP Internal Medicine; Referring Provider Surgery Vascular Surgery; Visit Provider Surgery Vascular Surgery
DX: I83.893 Varicose veins of bilateral lower extremities with other complications (principal)
CPT/HCPCS: 93970